=== PATIENT | male | born 1955 | race Caucasian/White ===

== ENCOUNTER 2021-10-28 08:00 | Outpatient (CLI) | payer OTHER ==
[2021-10-28 20:24] LABS: CALCIUM 9.4 mg/dL (8.5-10.3); CREATININE 0.8 mg/dL (0.6-1.2); POTASSIUM 3.7 mmol/L (3.5-5.0)
== END 2021-10-28 23:59 ==
LOC: LAB.S 08:00
PROVIDERS: ATTEND Physician Assistant
DX: R30.0 Dysuria (principal); Z79.899 Other long term (current) drug therapy
CPT/HCPCS: 36415; 80048; 87086